=== PATIENT | female | born 1995 | race Caucasian/White ===

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

== ENCOUNTER 2017-05-22 09:14 | Emergency (ER) | payer BC ==
[2017-05-22 09:53] VITALS: BP 107/72
--- NOTE | 2017-05-22 10:13 | UC ---
Complaint Female HPI - HPI Summary HPI Summary: 21 year old female with complaint. she thinks she has a yeast infection. she complains of the perineal area is red inflamed and itchy. she has had sx since yesterday. she is on amoxicillin for a sinus infection. she has not tried any OTC treatments because she has never had a yeast infection before and was not sure what it was. no other discharge. on the end of her period. no new sexual partners. no vaginal discharge otherwise at this time but had some white discharge without odor with some itch a few days ago . no unprotected sex or previous STD. on day 13 of amox for sinusitis and to see director apparel next week. [ End ] - History Of Current Complaint Chief Complaint: UCGU Stated Complaint: PERSONAL Time Seen by Provider: 05/22/17 09:50 Hx Obtained From: Patient Hx Last Menstrual Period: 12/02/16 Onset/Duration: Sudden Onset Timing: Constant Pain Intensity: 2 - Allergies/Home Medications Allergies/Adverse Reactions: Allergies Allergy/AdvReac Type Severity Reaction Status Date / Time bee venom protein (honey bee) Allergy Unknown Verified 05/22/17 09:53 Reaction Details Home Medications: Home Medications Amoxicillin PO (*) [Amoxicillin 875 MG (*)] 875 mg PO BID 05/22/17 [History Confirmed 05/22/17] LevoCETirizine TAB (NF) [Xyzal TAB (NF)] 5 mg PO DAILY 05/22/17 [History Confirmed 05/22/17] Two Allergy Nasal [place] 2 spray .ROUTE DAILY 05/22/17 [History Confirmed ] PMH/Surg Hx/FS Hx/Imm Hx Previously Healthy: Yes - Surgical History Surgical History: Yes Surgery Procedure, Year, and Place: BACK S-2010 - Family History Known Family History: Negative: Cardiac Disease, Hypertension - Social History Occupation: Student Alcohol Use: Occasionally Substance Use Type: None Smoking Status (MU): Never Smoked Tobacco Have You Smoked in the Last Year: No - Immunization History Most Recent Influenza Vaccination: NONE 2017 Review of Systems ENT: Sinus Congestion, Sinus Pain/Tenderness Genitourinary: Vaginal/Penile Itching Is Patient Immunocompromised?: No All Other Systems Reviewed And Are Negative: Yes Physical Exam Triage Information Reviewed: Yes Appearance: Well-Appearing, No Pain Distress, Well-Nourished Vital Signs: Initial Vital Signs Temp 98.3 F 05/22/17 09:48 Pulse 71 05/22/17 09:48 Resp 14 05/22/17 09:48 BP 107/72 05/22/17 09:48 Pulse Ox 99 05/22/17 09:48 Eye Exam: Normal ENT Exam: Normal ENT: Positive: Sinus tenderness Dental Exam: Normal Neck exam: Normal Neck: Positive: 1 Respiratory Exam: Normal Cardiovascular Exam: Normal Musculoskeletal Exam: Normal Neurological Exam: Normal Psychological Exam: Normal Skin Exam: Normal Skin: Positive: Other Complaint Female Dx - Course Course Of Treatment: No concern for STD/STI. If Sx persist then RTO for STD work up . She is aware and agreeable - Differential Dx/Diagnosis Provider Diagnoses: candidiasis vulvovaginal Discharge - Sign-Out/Discharge Documenting (check all that apply): Discharge - Discharge Plan Condition: Good Disposition: HOME Prescriptions: Fluconazole [Diflucan 150 MG (NF)] 150 mg PO ONCE #1 tab Nystatin OINT* 1 applic TOPICAL BID #1 tube Patient Education Materials: Yeast Infection (ED) Referrals: Non Staff,Doctor [Primary Care Provider] - If Needed - Billing Disposition and Condition Condition: GOOD Disposition: HOME Images Perineum Female: 1 - redness irritated. no lesions. no ulcer. no active discharge. lewis Lazcano RN
== END 2017-05-22 10:20 | disposition home or self-care (01) ==
LOC: UCCORT 09:14
DX: B37.3 Candidiasis of vulva and vagina (principal); Z79.2 Long term (current) use of antibiotics
CPT/HCPCS: 99212; G0463

== ENCOUNTER 2017-11-17 15:07 | Emergency (ER) | payer BC ==
[2017-11-17 15:24] VITALS: BP 120/76
--- NOTE | 2017-11-17 15:45 | UC ---
Throat Pain/Nasal [place] HPI - HPI Summary HPI Summary: 22 year old female presents with 1 week history of nasal congestion, green nasal drainage, sinus pressure, mild sore throat, and occasional productive cough for green sputum. Symptoms worse today. Has been taking Sudafed with improvement but ran out yesterday. Denies fever, chills, ear pain or drainage, chest pain, shortness of breath, abdominal pain, nausea, or vomiting. - History of Current Complaint Chief Complaint: UCGeneralIllness Stated Complaint: CONGESTION,EAR(S),SINUS PRESSURE Time Seen by Provider: 11/17/17 15:31 Hx Obtained From: Patient Hx Last Menstrual Period: 10/22/17 Onset/Duration: Gradual Onset, Lasting Days - 7 Severity: Moderate Pain Intensity: 8 Cough: Productive Associated Signs & Symptoms: Positive: Sinus Discomfort, Nasal Discharge. Negative: Dysphagia, Fever, Vomiting, Rash - Allergies/Home Medications Allergies/Adverse Reactions: Allergies Allergy/AdvReac Type Severity Reaction Status Date / Time bee venom protein (honey bee) Allergy Unknown Verified 11/17/17 15:24 Reaction Details PMH/Surg Hx/FS Hx/Imm Hx Previously Healthy: Yes - Denies significant PMH - Surgical History Surgical History: Yes Surgery Procedure, Year, and Place: BACK S-2010 - Family History Family History: Noncontributory - Social History Occupation: Employed Full-time Lives: With Family Alcohol Use: Occasionally Substance Use Type: None Smoking Status (MU): Never Smoked Tobacco Have You Smoked in the Last Year: No - Immunization History Most Recent Influenza Vaccination: NONE 2016 Review of Systems Constitutional: Negative Skin: Negative Eyes: Negative ENT: Sore Throat, Nasal Discharge, Sinus Congestion Respiratory: Cough Cardiovascular: Negative Gastrointestinal: Negative Is Patient Immunocompromised?: No All Other Systems Reviewed And Are Negative: Yes Physical Exam Triage Information Reviewed: Yes Appearance: Well-Appearing, No Pain Distress, Well-Nourished Vital Signs: Initial Vital Signs Temp 97.5 F 11/17/17 15:20 Pulse 72 11/17/17 15:20 Resp 18 11/17/17 15:20 BP 120/76 11/17/17 15:20 Pulse Ox 99 11/17/17 15:20 Vital Signs Reviewed: Yes Eyes: Positive: Conjunctiva Clear. Negative: Discharge ENT: Positive: Pharyngeal erythema - Mild erytheam with cobblestoning, Nasal congestion, Nasal drainage, TMs normal, Sinus tenderness - Bilateral frontal, ethmoid, and maxillary, Uvula midline. Negative: Tonsillar swelling, Tonsillar exudate Neck: Positive: Supple, Nontender, No Lymphadenopathy Respiratory: Positive: Lungs clear, Normal breath sounds, No respiratory distress Cardiovascular: Positive: RRR, No Murmur Neurological: Positive: Alert Skin Exam: Normal Throat Pain/Nasal Course/Dx - Course Course Of Treatment: 22 year old female with 7 days of URI symptoms. Afebrile. Exam unremarkable except for sinus tenderness, nasal congestion and discharge, and mild pharyngeal erythema. Likely viral illness. Recommend symptomatic treatment with saline rinses, fluticasone nasal spray, and OTC decongestant. Verbalizes understanding and agrees with POC. - Differential Dx/Diagnosis Provider Diagnoses: acute sinusitis Discharge - Sign-Out/Discharge Documenting (check all that apply): Patient Departure All imaging exams completed and their final reports reviewed: No Studies - Discharge Plan Condition: Stable Disposition: HOME Prescriptions: Fluticasone NASAL SPRAY 50MCG* [Flonase NASAL SPRAY 50MCG*] 2 spray BOTH NARES DAILY #1 btl Patient Education Materials: Sinusitis (ED) Referrals: No Primary Care Phys,NOPCP [Primary Care Provider] - Additional Instructions: Your symptoms and exam are consistent with sinusitis which is typically caused by a viral infection. Viruses do not respond to antibiotics and typically run their course over 7-10 days. Start using a saline rinse kit such as Netti Pot or NeilMed twice daily to help thin secretions and promote drainage. Use fluticasone (Flonase) 2 sprays each nostril once daily to help reduce the inflammation of the nasal passages. Use an over the counter decongestant such as Sudafed according to directions to help reduce the pain and pressure. Follow up with your primary care provider in 7 days if symptoms persist. Seek immediate medical attention if you develop fever greater than 100.5 F, have sudden severe headache, are unable to swallow, or have worsening of symptoms. - Billing Disposition and Condition Condition: STABLE Disposition: Home
== END 2017-11-17 15:51 | disposition home or self-care (01) ==
LOC: UCCORT 15:07
DX: J01.90 Acute sinusitis, unspecified (principal)
CPT/HCPCS: 99212; G0463

== ENCOUNTER 2018-06-21 20:38 | Emergency (ER) | payer BC ==
[2018-06-21 20:53] VITALS: BP 117/75
--- NOTE | 2018-06-21 21:02 | UC ---
Throat Pain/Nasal [place] HPI - HPI Summary HPI Summary: C/O sore throat and bilateral ear pain. Has issues with congestion. - History of Current Complaint Stated Complaint: SORE THROAT,BILAT EAR CONCERN Hx Obtained From: Patient Hx Last Menstrual Period: 06/03/18 ?: No Onset/Duration: Sudden Onset, Lasting Hours - 15, Still Present Pain Intensity: 7 Cough: None Associated Signs & Symptoms: Positive: Dysphagia, Nasal Discharge - with chronic allergies Related History: Seasonal Allergies - Epiglottits Risk Factors Epiglottis Risk Factors: Negative - Allergies/Home Medications Allergies/Adverse Reactions: Allergies Allergy/AdvReac Type Severity Reaction Status Date / Time bee venom protein (honey bee) Allergy Unknown Verified 06/21/18 20:53 Reaction Details PMH/Surg Hx/FS Hx/Imm Hx Previously Healthy: Yes - Surgical History Surgical History: Yes Surgery Procedure, Year, and Place: BACK -2010 - Family History Known Family History: Negative: Cardiac Disease, Hypertension Family History: Noncontributory - Social History Occupation: Student Lives: Dormitory/Roommates Alcohol Use: Occasionally Substance Use Type: None Smoking Status (MU): Never Smoked Tobacco Have You Smoked in the Last Year: No - Immunization History Most Recent Influenza Vaccination: NONE 2016 Review of Systems All Other Systems Reviewed And Are Negative: Yes Constitutional: Positive: Fever ENT: Positive: Sore Throat, Nasal Discharge Is Patient Immunocompromised?: No Physical Exam Triage Information Reviewed: Yes Appearance: No Pain Distress, Well-Nourished, Ill-Appearing Vital Signs: Initial Vital Signs Temp 99.0 F 06/21/18 20:49 Pulse 84 06/21/18 20:49 Resp 17 06/21/18 20:49 BP 117/75 06/21/18 20:49 Pulse Ox 99 06/21/18 20:49 Vital Signs Reviewed: Yes Eyes: Positive: Conjunctiva Clear ENT: Positive: Pharyngeal erythema, Nasal congestion - allergic changes, TMs normal Neck: Positive: Supple, Tenderness @ - bilateral anterior cervical nodes. Respiratory Exam: Normal Cardiovascular Exam: Normal Musculoskeletal Exam: Normal Neurological Exam: Normal Psychological Exam: Normal Skin Exam: Normal Throat Pain/Nasal Course/Dx - Differential Dx/Diagnosis Differential Diagnosis/HQI/PQRI: Pharyngitis, Tonsillitis, URI Provider Diagnosis: Pharyngitis, Allergic rhinitis Discharge - Sign-Out/Discharge Documenting (check all that apply): Patient Departure All imaging exams completed and their final reports reviewed: No Studies - Discharge Plan Condition: Stable Disposition: HOME Patient Education Materials: Pharyngitis (ED), Allergic Rhinitis (ED) Referrals: No Primary Care Phys,NOPCP [Primary Care Provider] - Additional Instructions: NEILMED SINUS RINSE: CHECK OUT AT [facility] Saline nasal wash helps with mucous, allergies and congestion. It can be used up to twice a day or only as needed. Use lukewarm tap water. It does not have to be sterilized or distilled water. Do 1/3 on each side and snort out of both nostrils. Repeat the process with 1/6 of the bottle on each side with snorting in between to finish the solution in the bottle - Billing Disposition and Condition Condition: STABLE Disposition: Home
== END 2018-06-21 21:24 | disposition home or self-care (01) ==
LOC: UCCORT 20:38
DX: J00 Acute nasopharyngitis [common cold] (principal); H92.03 Otalgia, bilateral; R50.9 Fever, unspecified; Z91.030 Bee allergy status
CPT/HCPCS: 87070; 87651; 99211; G0463